=== PATIENT | male | born 1960 | race Caucasian/White ===

== ENCOUNTER 2017-02-26 13:06 | Emergency (ER) | payer OTHER ==
[2017-02-26 14:26] VITALS: O2SAT 99
[2017-02-26 14:35] LABS: BASO # 0.1 K/uL (0.0-0.2); BASO % 1.3 % (0.0-2.0); EOS # 0.2 K/uL (0.0-0.7); EOS % 1.9 % (0.0-4.0); HEMOGLOBIN 14.4 g/dL (12.0-18.0); LYMPH # 2.2 K/uL (1.0-4.3); LYMPH % 22.1 % (20.0-40.0); MEAN CELL VOLUME 88.6 fL (80.0-94.0); MEAN CORPUSCULAR HEMOGLOBIN 29.8 pg (27.0-31.0); MEAN CORPUSCULAR HGB CONC 33.6 g/dL (33.0-37.0); MEAN PLATELET VOLUME 9.8 fL (7.2-11.7); MONO # 0.9 K/uL (0.0-0.8); MONO % 8.8 % (0.0-10.0); NEUT # 6.5 K/uL (1.8-7.0); NEUT % 65.9 % (50.0-75.0); RBC 4.83 Mil/uL (4.40-5.90); RED CELL DISTRIBUTION WIDTH 13.8 % (11.5-14.5); WHITE BLOOD COUNT 9.9 K/uL (4.8-10.8)
[2017-02-26 14:46] LABS: ALB/GLOB RATIO 1.3 (1.0-2.1); ALBUMIN 4.1 g/dL (3.5-5.0); ALT/SGPT 34 U/L (21-72); AST/SGOT 28 U/L (17-59); BLOOD UREA NITROGEN 9 mg/dL (9-20); CALCIUM 8.6 mg/dl (8.6-10.4); GFR AFRICAN-AMERICAN > 60; GFR NON-AFRICAN AMERICAN > 60
[2017-02-26 14:58] LABS: CK-MB 0.81 ng/mL (0.0-3.38)
--- NOTE | 2017-02-26 15:55 | C.PDOC ---
History Of Present Illness 56-year-old male, presents to the emergency department with complaints of right shoulder pain, since he was lifting objects at work four days ago. Pain is worse with movement of the shoulder. He denies any chest pain or shortness of breath, but last night he felt a sensation of his heart racing. He denies cough , fevers, rash, weakness in extremities or sensory changes. Time Seen by Provider: 02/26/17 13:46 Chief Complaint (Nursing): Palpitations History Per: Patient History/Exam Limitations: no limitations Past Medical History Reviewed: Historical Data, Nursing Documentation, Vital Signs Vital Signs: Last Vital Signs Temp 97.8 F 02/26/17 16:12 Pulse 61 02/26/17 16:12 Resp 18 02/26/17 16:12 BP 167/83 H 02/26/17 16:12 Pulse Ox 99 02/26/17 16:12 - Medical History PMH: Schizophrenia Family History: States: No Known Family Hx - Social History Hx Alcohol Use: No Hx Substance Use: No - Immunization History Hx Tetanus Toxoid Vaccination: Yes Hx Influenza Vaccination: Yes Hx Pneumococcal Vaccination: Yes Review Of Systems Except As Marked, All Systems Reviewed And Found Negative. Constitutional: Negative for: Fever Cardiovascular: Negative for: Chest Pain, Palpitations Respiratory: Negative for: Shortness of Breath Gastrointestinal: Negative for: Nausea, Vomiting Musculoskeletal: Positive for: Shoulder Pain (right) Neurological: Negative for: Weakness, Numbness, Headache, Dizziness Physical Exam - Physical Exam Appears: Non-toxic, No Acute Distress Skin: Warm, Dry, No Rash Head: Atraumatic, Normacephalic Eye(s): bilateral: Normal Inspection, PERRL Oral Mucosa: Moist Lips: Normal Appearing Neck: Normal ROM Chest: Symmetrical Cardiovascular: Rhythm Regular, No Murmur Respiratory: Normal Breath Sounds, No Accessory Muscle Use Gastrointestinal/Abdominal: Soft, No Tenderness Extremity: No Deformity, Other (Tender to palpation in right trapezius and upper shoulder. Range of motion intact. No rashes, erythema or swelling. ) Neurological/Psych: Oriented x3, Normal Speech ED Course And Treatment - Laboratory Results Result Diagrams: 02/26/17 14:30 02/26/17 14:30 ECG: Interpreted By Me, Viewed By Me ECG Rhythm: Sinus Bradycardia ECG Interpretation: No Acute Changes Rate From EC O2 Sat by Pulse Oximetry: 99 (on RA) Pulse Ox Interpretation: Normal Progress Note: Bloodwork, EKG and XR Shoulder ordered and reviewed. Patient treated with Flexeril and Toradol. Disposition Counseled Patient/Family Regarding: Diagnosis, Need For Followup, Rx Given - Disposition Referrals: Cheko Beckham MD [Staff Provider] - Srikanth Haney MD [Staff Provider] - Giovanny Covington MD [Staff Provider] - Disposition: HOME/ ROUTINE Disposition Time: 16:00 Condition: STABLE Additional Instructions: FOLLOW UP WITH ORTHOPEDICS IF YOUR SHOULDER PAIN CONTINUES FOLLOW UP WITH CARDIOLOGY WITHIN 1 WEEK RETURN TO ER IF YOUR SYMPTOMS WORSEN Prescriptions: Naproxen 375 mg PO BID PRN #20 tablet PRN Reason: pain Instructions: Palpitations (ED), Shoulder Sprain (ED) Forms: [employer] (Omani) Print Language: SCOTTISH - POA Present On Arrival: None - Clinical Impression Clinical Impression: Right shoulder pain, Palpitations - Scribe Statement The provider has reviewed the documentation as recorded by the Scribe (Ashok Santos) All medical record entries made by the Scribe were at my direction and personally dictated by me. I have reviewed the chart and agree that the record accurately reflects my personal performance of the history, physical exam, medical decision making, and the department course for this patient. I have also personally directed, reviewed, and agree with the discharge instructions and disposition.
[2017-02-26 16:13] VITALS: BP 167/83; PULSE 61; RESP 18; TEMP 97.8
--- NOTE | 2017-02-26 16:38 | RAD ---
PROCEDURE: Radiographs of the Right Shoulder HISTORY: RIGHT SHOULDER PAIN COMPARISON: No prior. FINDINGS: BONES: Normal. No fracture. JOINTS: Normal. Glenohumeral and acromioclavicular joints preserved. No osteoarthritis. SOFT TISSUES: Normal. OTHER FINDINGS: None. IMPRESSION: No evidence of acute pathology in the right shoulder.
--- NOTE | 2017-02-27 13:40 | CARD ---
APPROVED REPORT EKG Measurement Heart [id number] <Conclusion> Sinus bradycardia Otherwise normal ECG
== END 2017-02-26 16:20 | disposition home or self-care (01) ==
LOC: C.ER 13:06
DX: R00.2 Palpitations (principal); M25.511 Pain in right shoulder
CPT/HCPCS: 73030; 80053; 82550; 82553; 84443; 84484; 85025; 93005; 96374; 99285; J1885